=== PATIENT | male | born 1960 | race Two or more races ===

== ENCOUNTER 2017-03-13 11:43 | Inpatient (IN) | payer OTHER ==
[~2017-03-13] VITALS: Ht 165.1 cm; Wt 78.8 kg
--- NOTE | ~2017-03-13 | HP ---
PATIENT'S NAME: VIANEY MOHAN [facility] AGE: 56 Y [address] ROOM: [place] [address] LOCATION: GPCU ADMIT DATE: 03/13/2017 History & Physical DISCHARGE DATE: FAMILY PHYSICIAN: PHYSICIAN, UNKNOWN ATTENDING PHYSICIAN: SANG ZHU DATE OF SERVICE: CHIEF COMPLAINT: Epigastric pain. 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 He presented to the emergency department today with epigastric pain, which is sharp in character, bandlike radiates to the back present all the time 8 x 10 on presentation and brought down by pain medications to about 5 x 10 associated with nausea, and a multiple episodes of emesis as well. No associated fever and chills reported. He was admitted to the outside hospital where a CAT scan was done, which was concerning for duodenitis and a General Surgery consultation was obtained, which raised the concern for possible gastritis, peptic ulcer disease, or even pyloric stenosis and referred him to go to [place]. On further inquiry, he stated that he has been having cough for many years now, which he thinks is secondary to smoking. He does not complain of any change in his bowel habits, but did have 1 episode of bleeding in the stools about a week ago. No pain associated with it. He denied any history of any heart attacks or any strokes. REVIEW OF SYSTEMS: All other systems reviewed and were negative except what is mentioned in the HPI. ALLERGIES: THE PATIENT IS ALLERGY TO IODINE AND IODINATED CONTRAST MEDIA. PAST MEDICAL HISTORY: Syncopal episodes, hypertension, and recurrent falls. MEDICATIONS: Medications are being reconciled right now. SOCIAL HISTORY: Lifelong two pack per day smoker. No alcohol. Lives in [place]. FAMILY HISTORY: PATIENT'S NAME: VIANEY MOHAN [facility] AGE: 56 Y [address] ROOM: [place] [address] LOCATION: GPCU ADMIT DATE: 03/13/2017 History & Physical DISCHARGE DATE: FAMILY PHYSICIAN: PHYSICIAN, UNKNOWN ATTENDING PHYSICIAN: SANG ZHU Significant for diabetes on the paternal side. PHYSICAL EXAMINATION: VITAL SIGNS: 170/66, 62, afebrile, 14. GENERAL: No acute distress. Alert and oriented x3. HEENT: Head: Atraumatic, normocephalic. Eyes: Nonicteric. No pallor. Oropharynx: Dry mucous membranes. CARDIOVASCULAR: S1, S2. No murmurs, gallops, or rubs. LUNGS: Clear to auscultation bilaterally. ABDOMEN: Soft, tender in the epigastrium. No rebound tenderness or rigidity or bleeding noted. Bowel sounds are present. EXTREMITIES: No clubbing, cyanosis, or edema. PSYCHIATRIC: Normal affect mood and speech. NEUROLOGIC: Cranial nerves 2 through 12 intact. No motor or sensory deficit noted. LABORATORY DATA: Initial troponin levels and CK-MB and CPK in the emergency department negative. Chest x-ray was done, which did not reveal any acute intrathoracic abnormality. CMP was done, which was also unremarkable except mildly elevated ALT. CBC was done which was impressive for leukocytosis with a white count of 13. PT/INR was unremarkable. ASSESSMENT AND PLAN: 1. Epigastric pain. 2. Chest pain, ACS rule out. 3. Hypertension. 4. Syncopal episode. 5. Recurrent falls. We are going to admit this patient to inpatient. I believe this pain is likely coming from the GI tract rather than cardiac in origin. Anyhow, we are going to rule him out for any cardiac etiology with the troponin levels as well as echocardiography. Stress testing can be considered in the morning. Given that the CT scan, raised the concern for duodenitis and surgeon at the outside facility was concerned for even periampullary tumor and was referred to [facility]. I would place a GI consultation. I would defer to them regarding decision of upper endoscopy to take a look and if he has gastritis, peptic ulcer disease, or other pathology to explain this abdominal pain. Amylase and lipase levels are pending at this point, I will also obtain procalcitonin level. He also appears to be dehydrated. At this point, I am going to hydrate it with Ringer's lactate. Of note, he have a LINQ device placed, which is intracardiac monitor for the syncopal episodes. We will try to get the data downloaded for that. The patient is full code. No DVT prophylaxis at this point, except SCDs. His further management will depend on his progress in the hospital. PATIENT'S NAME: VIANEY MOHAN [facility] AGE: 56 Y [address] ROOM: [place] [address] LOCATION: [facility] ADMIT DATE: 03/13/2017 History & Physical DISCHARGE DATE: FAMILY PHYSICIAN: PHYSICIAN, UNKNOWN ATTENDING PHYSICIAN: SANG ZHU MD ROXANE SCHMITZ/juwan /[id number] D: [id number] T: [id number] HISTORY & PHYSICAL
--- NOTE | ~2017-03-13 | CON ---
PATIENT'S NAME: VIANEY MOHAN [facility] AGE: 56 Y [address] ROOM: [address] [address] LOCATION: GPCU ADMIT DATE: 03/13/2017 Consultation DISCHARGE DATE: 03/14/2017 FAMILY PHYSICIAN: Physician, Unknown ATTENDING PHYSICIAN: Isis Kruger DATE OF CONSULTATION: 03/13/2017 REFERRING PHYSICIAN: Isis Kruger MD REASON FOR CONSULTATION: Mid-epigastric discomfort. HISTORY OF PRESENT ILLNESS: This is a 56-year-old gentleman with past medical history significant for hypertension and multiple syncopal episodes. The patient presented to the emergency department with mid-epigastric pain that he describes as sharp in nature with bandlike radiating into the back. The patient states that he has also had associated nausea with the pain. He has had multiple episodes of emesis with 1 of them being coffee-ground in appearance. He denies any associated fever, chills, or weight loss. He was admitted to an outside facility where a CT scan was done concerning for duodenitis. He does complain of some intermittent bright red blood per rectum. In discussion with the patient, he denies any known hemorrhoids. He also denies any history of colonoscopy or upper endoscopy. He does state that the blood in the stool happens intermittently and is located in the stool as well as mixed in per his recollection. He states at 1 time it was dark a few weeks ago, but now is more bright red. He does state that this has been intermittently going on for approximately 4 months. He denies any associated pain with the blood in the stool. The patient does admit to using frequent NSAIDs and has been for approximately 5 months. He does state that he takes ibuprofen 800 mg per day on a day-to- day basis. PAST MEDICAL HISTORY: Syncopal episodes, hypertension, and tobaccoism. PAST SOCIAL HISTORY: The patient is a lifelong 2 pack per day smoker. He is from [place]. He denies any alcohol use frequently. He does admit to drinking on a limited social basis. He lives in [place]. FAMILY HISTORY: Significant for diabetes on the paternal side. He denies any known gastrointestinal diseases or cancers to his knowledge. PATIENT'S NAME: VIANEY MOHAN [facility] AGE: 56 Y [address] ROOM: [id number] [place], [place] [address] LOCATION: GPCU ADMIT DATE: 03/13/2017 Consultation DISCHARGE DATE: 03/14/2017 FAMILY PHYSICIAN: Physician, Unknown ATTENDING PHYSICIAN: Isis Kruger ALLERGIES: IODINE. CURRENT MEDICATIONS: Please refer to the medication administration record. REVIEW OF SYSTEMS: All point review of systems was completed. All were negative except for those identified in the history of present illness. PHYSICAL EXAMINATION: GENERAL: A very pleasant, 56-year-old male, lying in bed, who appears to be in no acute distress. VITAL SIGNS: Temperature 98.1, pulse of 69, respirations of 16, blood pressure 139/79, and oxygen saturations 96%. SKIN: [place], warm, and dry. No jaundice. HEENT: Head is normocephalic and atraumatic. Pupils are equal, round, and reactive to light. Sclerae are clear. Nonicteric. Oral mucosa is pink and moist. No thyromegaly. NECK: Soft and supple. CARDIOVASCULAR: Regular. Normal S1 and S2. RESPIRATORY: Respirations are even and unlabored. LUNGS: Clear to auscultation. ABDOMEN: Soft and round. Tender in the midepigastric area. Bowel sounds are positive x4 quadrants. MUSCULOSKELETAL: No muscle weakness or atrophy. EXTREMITIES: No clubbing, cyanosis, or edema. NEUROLOGIC: Grossly nonfocal. LABORATORY DATA AND DIAGNOSTIC DATA: White blood cell count of 13.7, hemoglobin of 15.4, hematocrit of 45.0, and platelet of 171. Cardiac enzymes have been within normal limits. Glucose of 99, BUN of 13, creatinine 0.9, sodium of 141, potassium of 4.1, chloride of 109, and CO2 of 24. AST 39, ALT elevated at 105, alkaline phosphatase of 98, and total bilirubin is 0.3. Amylase normal at 52, lipase normal at 220, ProTime 9.5, INR 0.91, and PTT is 26. ASSESSMENT AND PLAN: Again, this is a pleasant 56-year-old gentleman who was admitted with epigastric discomfort. He recently underwent a CT scan, completed, concern for duodenitis versus periampullary tumor. He denies any history of upper endoscopy. At this point, we will go forth with an upper endoscopy for further evaluation of the patient's findings of a CT scan as well as his mid- epigastric discomfort. The patient will be placed on Protonix as well as PATIENT'S NAME: VIANEY MOHAN [facility] AGE: 56 Y [address] ROOM: [id number] [place], [place] [address] [facility] ADMIT DATE: 03/13/2017 Consultation DISCHARGE DATE: 03/14/2017 FAMILY PHYSICIAN: Physician, Unknown ATTENDING PHYSICIAN: Isis Kruger fluid resuscitation for slight dehydration. Further recommendations to be given status post upper endoscopy. INOCENCIA FERGUSON APRN FOR NORMA BRUNNER MD MMF/modl /[id number] d: 03/14/17 1840 t: 04/22/17 0821, CONSULTATION REPORT
--- NOTE | ~2017-03-13 | ER ---
PATIENT'S NAME: VIANEY MOHAN [facility] AGE: 56 Y [address] ROOM: [place] [address] LOCATION: GPCU ADMIT DATE: 03/13/2017 ER/Outpatient Report DISCHARGE DATE: 03/14/2017 FAMILY PHYSICIAN: Physician, Unknown ATTENDING PHYSICIAN: Isis Kruger CHIEF COMPLAINT: Chest pain. HISTORY OF PRESENT ILLNESS: Mr. Mohan has a history of chest pain. It is recurrent. He was recently hospitalized for similar in [place]. 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 The ultrasound of the gallbladder showed sludge. He was discharged recently and was feeling okay, but it really struck him again this morning. Nothing seems to make the symptoms better. The patient is a smoker with hypertension and diabetes, unsure about cholesterol. He states that he has had this pain off and on for his whole life, but this is worse than it has ever been. He is originally from [place]. His home tramadol has not been helping. PAST MEDICAL HISTORY: Documented on the record and reviewed by me. SOCIAL HISTORY: Documented on the record and reviewed by me. MEDICATIONS: Documented on the record and reviewed by me. ALLERGIES: DOCUMENTED ON THE RECORD AND REVIEWED BY ME. REVIEW OF SYSTEMS: All systems were reviewed and negative except as noted in the HPI. PHYSICAL EXAMINATION: VITAL SIGNS: Blood pressure 187/96, pulse 91, respiratory rate is 18, temperature 98.4, and SpO2 is 98% on room air. Pain is rated at 10/10. GENERAL: An age-appropriate male, in no obvious pain or distress, recumbent on the exam table. NEUROLOGIC: Awake and alert. GCS 15. No focal deficits. No asymmetry. HEENT: Normocephalic, atraumatic. Eyes are PERRL. Oropharynx is clear. NECK: Supple. Trachea is midline. CHEST: Regular. PATIENT'S NAME: VIANEY MOHAN [facility] AGE: 56 Y [address] ROOM: [place] [address] LOCATION: GPCU ADMIT DATE: 03/13/2017 ER/Outpatient Report DISCHARGE DATE: 03/14/2017 FAMILY PHYSICIAN: Physician, Unknown ATTENDING PHYSICIAN: Isis Kruger HEART: Regular rate and rhythm with no murmurs. LUNGS: Clear to auscultation bilaterally. No rhonchi, wheezes, or rales. ABDOMEN: Soft, nontender, and nondistended. No rebound or guarding. BACK: Normal to inspection and palpation. EXTREMITIES: Warm and well perfused. SKIN: Appears to be clean, dry, and intact. LABORATORY AND X-RAY DATA: Chest x-ray is unremarkable per my review. EKG is sinus rhythm, rate of 85, with normal intervals and axis. No signs of acute ischemia. Initial and repeat troponin are not elevated. CMS with no appreciable abnormalities other than an elevation of ALT at 105. Renal function is appropriate, GFR is greater than 90, creatinine 0.9. Magnesium 2.4. White count is 13.7 with 7.7 neutrophils, 4.7 lymphs, 1.1 monos; platelets and hemoglobin within appropriate limits. INR is less than 1. IMPRESSION: Epigastric pain, unclear etiology. EMERGENCY DEPARTMENT COURSE: The patient was seen and evaluated as above. He has significant risk factors for acute coronary syndrome, although there is no evidence of ischemia at this time. Given his recent findings of duodenitis and possible tumor, I am unclear regarding his exact condition. His symptoms were managed in the emergency department with GI cocktail, famotidine, Zofran, and morphine. He was feeling a little bit better, but continued to have some discomfort. I will admit him to the Hospitalist Service for further evaluation and treatment of these symptoms as it is unclear and he is moderate to high risk for coronary syndrome. All questions were answered, and the patient was admitted without further issue to the Hospitalist Service. MD THOR WELDON/juwan /[id number] d: 03/14/171915 t: 03/23/17721, OUTPATIENT REPORT
--- NOTE | ~2017-03-13 | DS ---
PATIENT'S NAME: VIANEY MOHAN [facility] AGE: 56 Y [address] ROOM: [id number] [place], [place] [address] LOCATION: GPCU ADMIT DATE: 03/13/2017 Discharge Summary DISCHARGE DATE: 03/14/2017 FAMILY PHYSICIAN: Physician, Unknown ATTENDING PHYSICIAN: Isis Kruger FINAL DIAGNOSES: 1. Peptic ulcer disease, NSAID induced. 2. Essential hypertension. 3. Recurrent syncope. Please see the history and physical dictated by Dr. Kruger for details of admission. In short, the patient presented with pain and had a CT in an outlying facility suggestive of inflammation, possibly tumor within his GI tract. LABORATORY DATA: On admission, sodium was 141, potassium 4.1, chloride 109, CO2 of 24, BUN 13, creatinine 0.9. Alkaline phosphatase 98, AST 39, ALT 105. Cardiac enzyme; his CK was 109, MB 1. All 4 troponins that were checked were less than 0.04. On admission, white blood cell count 13.7, hemoglobin 15.4, hematocrit 45, platelet count 171. PTT 26. Pro-time 9.5, INR 0.91. RADIOLOGY DATA: Chest x-ray on admission did not show any acute vascular congestion. There is a loop recorder in place. Echocardiogram done showed that his ejection fraction was 50%. He had concentric left ventricular hypertrophy. HOSPITAL COURSE: The patient was admitted to the hospital with a diagnosis of epigastric pain and chest pain. Cardiac enzymes were done and he ruled out for an CA. An echocardiogram showed that he had good LV function. Dr. Hahn was asked to see the patient. He in the meantime had been started on IV Protonix. Dr. Hahn did feel that the EGD was appropriate. The patient did undergo the EGD, which did show that there were multiple small duodenal ulcers and gastritis most consistent with NSAID usage. The patient was feeling markedly improved. He was able to eat and drink without any abnormality. It was felt that he could be discharged. He is discharged to home. He is to follow up in the GI clinic in 1 week. He did want to establish care with a provider in [place], so an appointment was made with Dr. Wadsworth for 2 weeks. He advised to not use any aspirin, Motrin, Aleve, or ibuprofen. DISCHARGE MEDICATIONS: 1. Neurontin 300 mg twice daily. 2. Cozaar 25 mg daily. 3. Protonix 40 mg twice daily. 4. Zocor 40 mg at bedtime. PATIENT'S NAME: VIANEY MOHAN [facility] AGE: 56 Y [address] ROOM: [place] [address] LOCATION: GPCU ADMIT DATE: 03/13/2017 Discharge Summary DISCHARGE DATE: 03/14/2017 FAMILY PHYSICIAN: Physician, Unknown ATTENDING PHYSICIAN: Isis Kruger 5. Lopid 600 mg twice daily. 6. Carafate 1 g before meals and at bedtime. 7. Ultram 50 mg at bedtime. 8. Tylenol 1000 mg every 4 hours. 9. Cyclobenzaprine 10 mg 3 times daily. 10. Melatonin 5 mg at bedtime. 11. He was asked to stop his aspirin. The patient did voice understanding to these instructions. It was felt that he was stable for discharge. CARMEN BRIDGES MD LAW/modl /[id number] d: 03/15/17 1131 t: 03/20/17 1934, DISCHARGE SUMMARY
--- NOTE | ~2017-03-13 | ECHO ---
Transthoracic Echocardiography Report (TTE) Demographics Patient Name VIANEY MOHAN Date of Study 03/14/2017 Patient Number [id number] Visit Number [id number] Date of 1960 Room Number [address] Accession Number [id number] Gender Male Age 56 year(s) Referring Layout Mechanic Amina Lerner RVT, Physician ROCIO Physician Interpreting Abbey Meehan Debt Counselor Physician A Supervising Ordering Physician Slick Barnes MD/MICHELLEP Nurse Stress [employer] Conclusions Contractility Score Summary Normal Left Ventricular contractility was noted. Summary The estimated left ventricular ejection fraction is 50%. Mild concentric left ventricular hypertrophy. Diastolic assessment reveals normal relaxation. The right atrium is mildly dilated. Procedure Type of Study TTE procedure:2D Echocardiogram. Procedure Date Date: 03/14/2017 Start: 06:54 AM Study Location: Inpatient Portable Technical Quality: Adequate visualization Indications:Chest pain. Appropriate Use Criteria: 8 Patient Status: Routine Rhythm: NSR HR: 74 bpm BP: 138/71 mmHg M-Mode/2D Measurements LV Diastolic Dimension: 4.33 cm LV Systolic Dimension: 3.24 cm LV Septum Diastolic: 1.06 cm LV PW Diastolic: 1.13 cm AO Root Dimension: 2.5 cm Cardiac Output: 3.6 l/min AV Cusp Separation: 1.6 cm RV Diastolic Dimension: 2.59 cm LA volume: 47 ml LVOT: 2 cm RV Base: 3.71 cm LVOT VTI: 15.5 cm RV Mid: 2.7 cm LV Stroke volume: 48.67 ml TAPSE: 2.78 cm TDI-S': 13.5 cm/s Doppler Measurements AV Peak Velocity: 1.27 m/s MV Peak E-Wave: 0.81 m/s AV Peak Gradient: 6.45 mmHg MV Peak A-Wave: 0.43 m/s AV Mean Gradient: 4 mmHg MV E/A Ratio: 1.86 LVOT Peak Velocity: 0.62 m/s MV P1/2t: 52 msec PV Peak Velocity: 0.83 m/s E' Septal Velocity: 0.09 m/s PV Peak Gradient: 2.78 mmHg E' Lateral Velocity: 0.13 m/s A' Septal Velocity: 0.1 m/s A' Lateral Velocity: 0.06 m/s Findings Left Ventricle Mild concentric left ventricular hypertrophy. Diastolic assessment reveals normal relaxation. Right Ventricle Normal right ventricle structure and function. Left Atrium Normal left atrial size. There is no evidence of patent foramen ovale or atrial septal defect by color Doppler. Right Atrium The right atrium is mildly dilated. IVC measures 1.92 cm with inspiratory collapse. Mitral Valve Normal mitral valve structure and function. Trivial mitral regurgitation by color Doppler. Aortic Valve The aortic valve is mildly sclerotic. There is trivial aortic regurgitation. Tricuspid Valve Normal tricuspid valve structure and function. Pulmonic Valve Normal pulmonic valve structure and function. Pericardial Effusion No evidence of pericardial effusion. Miscellaneous Visualized portions of the aortic root and ascending aorta appear normal in size. Pleural Effusion No evidence of pleural effusion. Contractility Score LV regional wall motion:(0-Non visualized 1-Normal 2-Hypokinesis 3-Akinesis 4-Dyskinesis 5-Aneurysm) Signature dtt: Manohar Potter dtd: 03/14/17 0654 Physician Self Edit
[2017-03-13 12:01] LABS: BASOPHIL % 0.3 %; EOSINOPHIL # 0.1 K/uL (0.0-0.5); EOSINOPHIL % 0.8 %; HEMOGLOBIN 15.4 g/dL (12.0-17.0); IMMATURE GRANULOCYTE # 0.1 K/uL (0.0-0.3); IMMATURE GRANULOCYTE % 0.7 %; LYMPHOCYTE # 4.7 K/uL (0.8-4.0); LYMPHOCYTE % 34.3 %; MCH 31.6 pg (27.0-34.0); MCHC 34.2 gm/dL (32.0-36.5); MCV 92.4 fl (83.0-98.0); MONOCYTE # 1.1 K/uL (0.0-1.0); MONOCYTE % 7.9 %; MPV 10.3 fl (9.4-12.4); NEUTROPHIL # (ANC) 7.7 K/uL (1.4-9.0); NRBC % 0 /100WBC (0-0.00); PLATELET COUNT 171 K/uL (150-450); RBC 4.87 M/uL (4.00-6.00); RDW-CV 12.8 % (11.9-14.6); WBC 13.7 K/uL (4.0-11.0)
[2017-03-13 12:10] LABS: INR - (THERAPEUTIC) 0.91 (0.92-1.07); PROTIME 9.5 SECONDS (9.8-11.4); PTT 26 SECONDS (25-32)
[2017-03-13 12:21] LABS: ALBUMIN 3.6 gm/dL (3.5-5.0); ALK PHOS 98 IU/L (33-138); ALT 105 IU/L (12-78); ANION GAP 12.1 (10.0-19.0); AST 39 IU/L (10-40); BLOOD UREA NITROGEN 13 mg/dL (6-24); CALCIUM 8.5 mg/dL (8.5-10.5); CHLORIDE 109 mMol/L (96-110); CO2 24 mMol/L (22-32); CPK 115 IU/L (35-332); CREATININE 0.9 mg/dL (0.6-1.3); MAGNESIUM 2.4 mg/dL (1.8-2.6); POTASSIUM 4.1 mMol/L (3.7-5.1); SODIUM 141 mMol/L (135-145); TOTAL BILIRUBIN 0.3 mg/dL (0.0-1.5)
[2017-03-13 14:20] LABS: CPK 109 IU/L (35-332)
[2017-03-13] MEDS ORDERED: TYLENOL EXTRA500 MG PO (16:46)
[2017-03-13] MEDS ORDERED: CARAFATE1 GM PO (16:47)
[2017-03-13] MEDS ORDERED: ACID REDUCER 1150 MG PO (16:49)
[2017-03-13] MEDS ORDERED: CYCLOBENZAPRINE10 MG PO (16:50)
[2017-03-13] MEDS ORDERED: LOPID600 MG PO (16:54)
[2017-03-13] MEDS ORDERED: ZOCOR40 MG PO (16:54)
[2017-03-13] MEDS ORDERED: MELATONIN5 M2 PO (16:56)
[2017-03-13] MEDS ORDERED: ULTRAM50 MG PO (16:56)
[2017-03-13] MEDS ORDERED: NEURONTIN300 MG PO (16:57)
[2017-03-13] MEDS ORDERED: ASPIRIN LO-DOSE81 MG PO (16:58)
[2017-03-13] MEDS ORDERED: COZAAR25 MG PO (16:59)
[2017-03-14] MEDS ORDERED: PROTONIX40 MG PO (14:39)
== END 2017-03-14 15:10 | disposition disaster alternative care site (69) | DRG 384 ==
LOC: GMED 11:43 → GPCU 15:31
PROVIDERS: Emergency Medicine; ADMIT Internal Medicine
PROC: 0DB98ZX Excision of Duodenum, Via Natural or Artificial Opening Endoscopic, Diagnostic (ICD-10-PCS; principal; 2017-03-14)
DX: K26.9 Duodenal ulcer, unspecified as acute or chronic, without hemorrhage or perforation (principal); I10 Essential (primary) hypertension; Z79.1 Long term (current) use of non-steroidal anti-inflammatories (NSAID); R55 Syncope and collapse; Z91.81 History of falling; F17.210 Nicotine dependence, cigarettes, uncomplicated; E86.0 Dehydration; Z79.82 Long term (current) use of aspirin
CPT/HCPCS: C9113; J1940; J2270; J2405; J7030; J7120